=== PATIENT | male | born 1975 | race Caucasian/White ===

== ENCOUNTER 2020-12-20 14:23 | Emergency (ER) | payer OTHER ==
[~2020-12-20] VITALS: Ht 182.9 cm; Wt 97.0 kg
[2020-12-20 16:19] LABS: CREATININE 1.2 mg/dL (0.7-1.3); GFR 65.5; POTASSIUM 3.8 mmol/L (3.5-5.1)
[2020-12-20 16:21] LABS: BASO # 0.1 x10^3/uL (0.0-0.2); BASO % 1 % (0-3); EOS # 0.2 x10^3/uL (0.0-0.7); EOS % 3 % (0-3); HEMATOCRIT 47.7 % (39.0-53.0); HEMOGLOBIN 15.7 g/dL (13.0-17.5); LYMPH # 2.6 x10^3/uL (1.0-4.8); LYMPH % 31 % (24-48); MEAN CORPUSCULAR HEMOGLOBIN 31 pg (25-35); MEAN CORPUSCULAR HGB CONC 33 g/dL (31-37); MEAN CORPUSCULAR VOLUME 93 fL (79-100); MONO # 0.7 x10^3/uL (0.0-1.1); MONO % 8 % (0-9); NEUT # 4.9 x10^3uL (1.8-7.7); NEUT % 58 % (31-73); PLATELET COUNT 270 x10^3/uL (140-400); RED BLOOD COUNT 5.14 x10^6/uL (4.30-5.70); RED CELL DISTRIBUTION WIDTH 13.6 % (11.5-14.5); WHITE BLOOD COUNT 8.5 x10^3/uL (4.0-11.0)
[2020-12-20 16:33] LABS: ALBUMIN/GLOBULIN RATIO 1.1 (1.0-1.7); TOTAL BILIRUBIN 0.7 mg/dL (0.2-1.0); TOTAL PROTEIN 7.6 g/dL (6.4-8.2)
--- NOTE | 2020-12-20 17:04 | PHYS DOC ---
Past History Past Medical History: No Pertinent History (CECILIA WONG APRN) Past Surgical History: Knee Replacement, Other (CECILIA WONG APRN) Alcohol Use: Occasionally (CECILIA WONG APRN) General Adult EDM: Chief Complaint: ABDOMINAL PAIN HPI: HPI: Patient is a 45-year-old male who presents with left lower abdominal pain since yesterday. Patient reports pain is worse with movement. Denies flank pain, fever, nausea/vomiting/diarrhea. Denies blood in stool. Denies dysuria or frequency. Denies history of diverticulitis. Patient is rating pain at 3/10 and denies taking anything at home for pain. Patient has history of GERD, hyperlipidemia, seasonal allergies. (CECILIA WONG APRN) Review of Systems: Review of Systems: Constitutional: Denies fever or chills Eyes: Denies change in visual acuity HENT: Denies nasal congestion or sore throat Respiratory: Denies cough or shortness of breath Cardiovascular: Denies chest pain or edema GI: Reports left lower abdominal pain, denies nausea, vomiting, bloody stools or diarrhea : Denies dysuria Musculoskeletal: Denies back pain or joint pain Integument: Denies rash Neurologic: Denies headache, focal weakness or sensory changes Endocrine: Denies polyuria or polydipsia Lymphatic: Denies swollen glands Psychiatric: Denies depression or anxiety (CECILIA WONG APRN) Allergies: Allergies: Allergies Coded Allergies Type Severity Reaction Last Updated Verified No Known Drug Allergies 12/20/20 No (CECILIA WONG APRN) Physical Exam: PE: Constitutional: Well developed, well nourished, no acute distress, non-toxic appearance. [] HENT: Normocephalic, atraumatic, bilateral external ears normal, oropharynx moist, no oral exudates, nose normal. [] Eyes: PERRLA, EOMI, conjunctiva normal, no discharge. [] Neck: Normal range of motion, no tenderness, supple, no stridor. [] Cardiovascular:Heart rate regular rhythm, no murmur [] Lungs & Thorax: Bilateral breath sounds clear to auscultation [] Abdomen: Bowel sounds normal, soft, left lower quadrant tenderness, no masses, no pulsatile masses. [] Skin: Warm, dry, no erythema, no rash. [] Back: No tenderness, no CVA tenderness. [] Extremities: No tenderness, no cyanosis, no clubbing, ROM intact, no edema. [] Neurologic: Alert and oriented X 3, normal motor function, normal sensory function, no focal deficits noted. [] Psychologic: Affect normal, judgement normal, mood normal. [] (CECILIA WONG APRN) Current Patient Data: Labs: Laboratory Tests Test 12/20/20 15:32 White Blood Count 8.5 x10^3/uL (4.0-11.0) Red Blood Count 5.14 x10^6/uL (4.30-5.70) Hemoglobin 15.7 g/dL (13.0-17.5) Hematocrit 47.7 % (39.0-53.0) Mean Corpuscular Volume 93 fL (79-100) Mean Corpuscular Hemoglobin 31 pg (25-35) Mean Corpuscular Hemoglobin Concent 33 g/dL (31-37) Red Cell Distribution Width 13.6 % (11.5-14.5) Platelet Count 270 x10^3/uL (140-400) Neutrophils (%) (Auto) 58 % (31-73) Lymphocytes (%) (Auto) 31 % (24-48) Monocytes (%) (Auto) 8 % (0-9) Eosinophils (%) (Auto) 3 % (0-3) Basophils (%) (Auto) 1 % (0-3) Neutrophils # (Auto) 4.9 x10^3uL (1.8-7.7) Lymphocytes # (Auto) 2.6 x10^3/uL (1.0-4.8) Monocytes # (Auto) 0.7 x10^3/uL (0.0-1.1) Eosinophils # (Auto) 0.2 x10^3/uL (0.0-0.7) Basophils # (Auto) 0.1 x10^3/uL (0.0-0.2) Sodium Level 140 mmol/L (136-145) Potassium Level 3.8 mmol/L (3.5-5.1) Chloride Level 101 mmol/L (98-107) Carbon Dioxide Level 29 mmol/L (21-32) Anion Gap 10 (6-14) Blood Urea Nitrogen 20 mg/dL (8-26) Creatinine 1.2 mg/dL (0.7-1.3) Estimated GFR (Cockcroft-Gault) 65.5 BUN/Creatinine Ratio 17 (6-20) Glucose Level 103 mg/dL (70-99) H Calcium Level 9.0 mg/dL (8.5-10.1) Total Bilirubin 0.7 mg/dL (0.2-1.0) Aspartate Amino Transferase (AST) 15 U/L (15-37) Alanine Aminotransferase (ALT) 29 U/L (16-63) Alkaline Phosphatase 83 U/L (46-116) Total Protein 7.6 g/dL (6.4-8.2) Albumin 4.0 g/dL (3.4-5.0) Albumin/Globulin Ratio 1.1 (1.0-1.7) Lipase 84 U/L (73-393) Vital Signs: Vital Signs Date Time Temp Pulse Resp B/P (MAP) Pulse Ox O2 Delivery O2 Flow Rate FiO2 12/20/20 14:31 98.2 88 18 142/86 (104) 99 Room Air (CECILIA WONG APRN) EKG: EKG: [] (CECILIA WONG APRN) Radiology/Procedures: Radiology/Procedures: [] (CECILIA WONG APRN) Heart Score: Risk Factors: Risk Factors: DM, Current or recent (<one month) smoker, HTN, HLP, family history of CAD, obesity. Risk Scores: Score 0 - 3: 2.5% MACE over next 6 weeks - Discharge Home Score 4 - 6: 20.3% MACE over next 6 weeks - Admit for Clinical Observation Score 7 - 10: 72.7% MACE over next 6 weeks - Early Invasive Strategies (CECILIA WONG APRN) Course & Med Decision Making: Course & Med Decision Making Pertinent Labs and Imaging studies reviewed. (See chart for details) []Patient is a 45-year-old male who presents with left lower abdominal pain since yesterday. Patient reports pain is worse with movement. Denies flank pain, fever, nausea/vomiting/diarrhea. Denies blood in stool. Denies dysuria or frequency. Patient is rating pain at 3/10 and denies taking anything at home for pain. Patient has history of GERD, hyperlipidemia, seasonal allergies. CT abdomen and pelvis ordered. Patient denies history of diverticulitis. Labs unremarkable. UA negative for infection. CT of abdomen shows findings of epiploic appendagitis along the descending colon. Discharging patient to home. Patient to take ibuprofen at home for pain. Zofran given for nausea at home. Patient diagnosed with epiploic appendagitis. Patient to follow-up with PCP. Return to emergency room with worsening symptoms complaints. DICTATED AND SIGNED BY: ROXIE DUEÑAS MD DATE: 12/20/20 1839 CC: EMERGENCY,DEPARTMENT; BEA BLANTON MD; CECILIA WONG APRN ~MTH0 0 (CECILIA WONG APRN) Course & Med Decision Making Did not see or evaluate patient personally. Agree with PMO MANAGER's work-up and disposition per note. (JOHANN TAPIA MD) Dragon Disclaimer: Dragon Disclaimer: This electronic medical record was generated, in whole or in part, using a voice recognition dictation system. (CECILIA WONG APRN) Departure Departure: Impression: Primary Impression: Epiploic appendagitis Disposition: 01 DC HOME SELF CARE/HOMELESS Condition: STABLE Referrals: BEA BLANTON MD (PCP) Patient Instructions: Abdominal Pain, [id number] Additional Instructions: You were seen in the emergency room today for left lower abdominal pain. Your CT of your abdomen was negative for any acute abnormality. You can take ibuprofen at home for discomfort. I have also prescribed you hydrocodone to take at home as needed for pain. Please return to the emergency room with worsening symptoms or concerns otherwise if symptoms continue you may follow-up with your PCP. EMERGENCY DEPARTMENT GENERAL DISCHARGE INSTRUCTIONS Thank you for coming to [facility] (ED) today and trusting us with you care. We trust that you had a positivie experience in our Emergency Department. If you wish to speak to the department management, you may call the director at [phone]. YOUR FOLLOW UP INSTRUCTIONS ARE FOLLOWS: 1. Do you have a private Doctor? If you do not have a private doctor, please ask for a resource list of physicians or clinics that may be able to assist you with follow up care. 2. The Emergency Physician has interpreted your x-rays. The X-Ray specialist will also review them. If there is a change in the findings, you will be notified in 48 hours when at all possible. 3. A lab test or culture has been done, your results will be reviewed and you will be notified if you need a change in treatment. ADDITIONAL INSTRUCTIONS AND INFORMATION: 1. Your care today has been supervised by a physician who is specially trained in emergency care. Many problems require more than one evaluation for a complete diagnosis and treatment. We recommend that you schedule your follow up appointment as recommended to ensure complete treatment of you illness or injury. If you are unable to obtain follow up care and continue to have a problem, or if your condition worsens, we recommend that you return to the ED. 2. We are not able to safely determine your condition over the phone nor are we able to give sound medical advice over the phone. For these safety reasons, if you call for medical advice we will ask you to come to the ED for further evaluation. 3. If you have any questions regarding these discharge instructions please call the ED at [phone]. SAFETY INFORMATION: In the interest of safety, wellness, and injury prevention; we encourage you to wear your sealbelt, if you smoke; quite smoking, and we encourage family to use a protective helmet for bicycling and other sporting events that present an increased risk for head injury. IF YOUR SYMPTOMS WORSEN OR NEW SYMPTOMS DEVELOP, OR YOU HAVE CONCERNS ABOUT YOUR CONDITION; OR IF YOUR CONDITION WORSENS WHILE YOU ARE WAITING FOR YOUR FOLLOW UP APPOINTMENT; EITHER CONTACT YOUR PRIMARY CARE DOCTOR, THE PHYSICIAN WHOSE NAME AND NUMBER YOU WERE GIVEN, OR RETURN TO THE ED IMMEDIATELY. Scripts Ondansetron Hcl (ZOFRAN) 4 Mg Tablet 4 MG PO TID PRN PRN for NAUSEA, #9 TAB Prov: CECILIA WONG APRN 12/20/20 CECILIA WONG APRN Dec 20, 2020 17:04 JOHANN TAPIA MD Dec 21, 2020 00:14
[2020-12-20] MEDS ORDERED: IOHEXOL 300 MG/ML 75 ML VIAL. IV ONE (17:15)
[2020-12-20 17:32] LABS: BILIRUBIN,URINE NEG (NEG); CLARITY,URINE CLEAR; COLOR,URINE AMBER; GLUCOSE,URINE NEG (NEG)
[2020-12-20 17:33] LABS: BACTERIA,URINE 0 /HPF (0-FEW); NITRITE,URINE NEG (NEG); RBC,URINE 0 /HPF (0-2); UROBILINOGEN,URINE 0.2 mg/dL (0.2 mg/dL); WBC,URINE 0 /HPF (0-4)
[2020-12-20 18:00] VITALS: BP 134/85
--- NOTE | 2020-12-20 18:51 | RAD ---
Exam: CT abdomen/pelvis with intravenous contrast Indication: Left lower quadrant pain Comparison: CT abdomen pelvis 02/24/2009 Technique: Helical CT imaging performed of the abdomen and pelvis after the intravenous administratio n of 75 mL Omnipaque 300 contrast. Sagittal and coronal reformats were obtained. One or more of the following individualized dose reduction techniques were utilized for this examinat ion: 1. Automated exposure control 2. Adjustment of the mA and/or kV according to patient size 3. Use of iterative reconstruction technique. Findings: Lower chest: Normal. Liver: Normal. Gallbladder/Biliary Tree: Normal. Pancreas: Normal. Spleen: Normal. Adrenal Glands: Normal. Kidneys/Ureters/Bladder: Normal. Reproductive Organs: Normal. Stomach, small bowel, and colon: Stomach is normal. There is no small bowel obstruction. There is an ovoid hypodense fat attenuation lesion measuring approximately 3.5 x 2.8 x 3.3 cm with surrounding fa t stranding along the descending colon, consistent with epiploic appendicitis. Mild focal wall thicke maurice in the adjacent descending colon is likely reactive. The colon is otherwise normal in appearance . The appendix is normal. Vasculature: Abdominal aorta is normal in caliber. There are few calcifications in the infrarenal abd ominal aorta and iliac arteries. Lymph Nodes: No lymphadenopathy. Peritoneum and retroperitoneum: No free fluid or free air. Bones: No acute osseous abnormality. Mild degenerative joint disease at L5-S1. Impression: Findings of epiploic appendagitis along the descending colon. Electronically signed by: Hillary Marie MD (12/20/2020 6:49 PM) [id number]
[2020-12-20] MEDS ORDERED: HYDR-2155 PO (19:05)
[2020-12-20] MEDS ORDERED: ONDA4TAB7 PO (19:16)
[2020-12-20] MEDS ORDERED: KETOROLAC 15 MG/ML VIAL. IM ONE (19:30)
[2020-12-20] MEDS ORDERED: KETOROLAC 15 MG/ML VIAL. IVP ONE (19:30)
== END 2020-12-20 19:35 | disposition home or self-care (01) ==
LOC: ER 14:23
DX: K63.89 Other specified diseases of intestine (principal)
CPT/HCPCS: 36415; 74177; 80053; 81001; 83690; 85025; 96374; 99285; J1885; Q9967

== ENCOUNTER → 2021-03-21 | Outpatient (CLI) | payer OTHER ==
[~2021-03-21] MED LIST: HYDR-2155 PO; ONDA4TAB7 PO
--- NOTE | 2021-03-21 10:04 | RAD ---
EXAM: Abdomen sonogram. HISTORY: Pain. TECHNIQUE: Sonographic imaging of the abdomen was performed. COMPARISON: None. FINDINGS: The liver is normal in size. No focal hepatic lesion is seen. The gallbladder is unremarkab le. The common bile duct is normal in caliber. The kidneys are normal in size. There is no hydronephr osis or suspicious renal lesion. The spleen is normal in size. The pancreas is unremarkable. The aort a is partially obscured due to bowel gas. The inferior vena cava is patent. IMPRESSION: No acute sonographic finding. Electronically signed by: Aimee Pagan MD (03/21/2021 10:01 AM) [id number]
== END ==
LOC: US 09:06
PROVIDERS: ATTEND Internal Medicine Gastroenterology
DX: R10.33 Periumbilical pain (principal); R10.9 Unspecified abdominal pain
CPT/HCPCS: 76700

== ENCOUNTER → 2021-07-14 | Outpatient (CLI) | payer OTHER ==
--- NOTE | 2021-07-14 15:02 | RAD ---
Exam Date: 07/14/2021 2:[address] ABDOMEN+PELVIS WO Indication: Reason: RIGHT LOWER ABD PAIN W RADIATION TO RT SCROTUM / Spl. Instructions: EVAL FOR STON E / History: . TECHNIQUE: CT examination of the abdomen and pelvis was performed without oral or intravenous contra st. One or more of the following dose reduction techniques were utilized: *Automated exposure control (AEC) *Adjustment of mA and/or kV according to patient size *Use of iterative reconstruction technique *CT scan done according to ALARA, or ALARA/IMAGE GENTLY FINDINGS: The visualized lung bases are clear. The liver, gallbladder, spleen, pancreas, and adrenal glands are normal. There is a 2 mm nonobstructing left renal calculus. The kidneys are otherwise normal bilaterally. No hydronephrosis or hydroureter is seen. No right ur inary tract calculi are seen. Urinary bladder is normal in appearance. There is no bowel obstruction or inflammation. The appendix is normal. Mild atherosclerotic calcifications are seen. No lymphadenopathy or ascites is seen. Degenerative changes are seen in the spine. IMPRESSION: Nonobstructing left renal calculus. No hydronephrosis on either side. Electronically signed by: Klaus Goddard MD (07/14/2021 3:00 PM) [id number]
== END ==
LOC: CT 14:40
PROVIDERS: ATTEND Family Medicine
DX: N20.0 Calculus of kidney (principal); I70.90 Unspecified atherosclerosis; M47.817 Spondylosis without myelopathy or radiculopathy, lumbosacral region
CPT/HCPCS: 74176